=== PATIENT | female | born 1980 | race Caucasian/White ===

== ENCOUNTER 2020-10-07 00:10 | Inpatient (IN) | payer BC, OTHER ==
[~2020-10-07] VITALS: Ht 172.7 cm; Wt 69.0 kg
[2020-10-07] MEDS ORDERED: ONDANSETRON 2MG/ML, 2ML ONE ×2 (00:42→04:50)
[2020-10-07] MEDS ORDERED: MORPHINE SULFATE 4 MG/ML, 1ML ONE ×2 (00:42→03:43)
[2020-10-07 00:47] LABS: BASOPHILS % (AUTO) 1 % (0-1); EOSINOPHILS % (AUTO) 1 % (1-7); LYMPHOCYTES % (AUTO) 13 % (22-44); MEAN CORPUSCULAR HEMOGLOBIN 33.9 pg (27.0-34.8); MEAN CORPUSCULAR HGB CONC 34.7 g/dL (32.4-35.8); MEAN PLATELET VOLUME 9.1 fL (7.4-10.4); MONOCYTES % (AUTO) 7 % (2-9); NEUTROPHILS % (AUTO) 78 % (42-75); PLATELET COUNT 266 x10^3/uL (130-400); RED BLOOD COUNT 4.45 x10^6/uL (3.82-5.3); RED CELL DISTRIBUTION WIDTH 11.8 % (9.6-15.2)
[2020-10-07 00:48] LABS: MD NO
--- NOTE | 2020-10-07 00:51 | NUR ---
IV STARTED, FLUIDS INFUSING AND PT MEDICATED FOR PAIN PER EMAR, LABS DRAWN WITH IV START. VSS AND WILL CONT TO MONITOR. AWAITING CT SCAN
[2020-10-07] MEDS ORDERED: LEVO100T5 PO (00:53)
[2020-10-07 00:59] LABS: ALANINE AMINOTRANSFERASE 35 U/L (12-78); ALBUMIN 3.9 g/dL (3.4-5.0); ANION GAP 12 mmol/L (5-15); CALCIUM 8.9 mg/dL (8.5-10.1); CHLORIDE 110 mmol/L (98-107); CREATININE 0.73 mg/dL (0.55-1.02)
[2020-10-07] MEDS ORDERED: ONDANSETRON 2MG/ML, 2ML IVPush ONE (01:00)
[2020-10-07] MEDS ORDERED: MORPHINE SULFATE 4 MG/ML, 1ML IVPush PRN ×2 (01:00→04:00)
[2020-10-07 01:04] LABS: ALKALINE PHOSPHATASE 72 U/L (45-117); BILIRUBIN,TOTAL 0.4 mg/dL (0.2-1.0)
--- NOTE | 2020-10-07 01:13 | NUR ---
PT TO CT WITH PRINTED FORMS PROOFREADER AT THIS TIME. PT STATES PAIN IS IMPROVING AFTER MEDS.
[2020-10-07 02:34] LABS: MICROSCOPIC INDICATED
[2020-10-07] MEDS ORDERED: CEFTRIAXONE PMX 1GM/50ML 50 ML ONE (02:47)
[2020-10-07] MEDS ORDERED: CEFTRIAXONE PMX 1GM/50ML 50 ML IV ONE (03:00)
--- NOTE | 2020-10-07 03:00 | NUR ---
Report given to Sam in surgery. HCG urine lab added and Rapid Covid swab walked to lab. pt undressed and ready for surgery.
[2020-10-07] MEDS ORDERED: SODIUM CHLORIDE 0.9% 1,000 ML IV SCH (03:30)
[2020-10-07] MEDS ORDERED: morphine SULFATE 10 MG/ML, 1ML IVPush PRN ×2 (03:30→04:30)
[2020-10-07] MEDS ORDERED: KETOROLAC 30 MG/1 ML IV PRN (03:30)
[2020-10-07] MEDS ORDERED: ACETAMINOPHEN 325 MG TABLET PO PRN ×2 (03:30→04:30)
[2020-10-07] MEDS ORDERED: ONDANSETRON 2MG/ML, 2ML IVPush PRN (03:30)
[2020-10-07] MEDS ORDERED: FENTANYL PF 250 MCG/5ML ONE (03:49)
[2020-10-07] MEDS ORDERED: MIDAZOLAM 1 MG/ML, 2ML ONE (03:49)
--- NOTE | 2020-10-07 03:50 | NUR ---
Dr. Cameron at bedside for surgical consult.
[2020-10-07] MEDS ORDERED: SUGAMMADEX 200 MG/2 ML IVPush ONE (03:54)
[2020-10-07] MEDS ORDERED: KETOROLAC 30 MG/1 ML ONE (03:54)
[2020-10-07] MEDS ORDERED: SCOPOLAMINE 1MG PATCH TD ONE (04:07)
[2020-10-07] MEDS ORDERED: PROPOFOL 50 ML ONE (04:08)
[2020-10-07 04:12] LABS: HCG UR SG 1.023 (1.003-1.030)
[2020-10-07] MEDS ORDERED: MEPERIDINE/PF 25MG/0.5ML IVPush PRN (04:30)
[2020-10-07] MEDS ORDERED: LABETALOL 5MG/ML, 20ML IV PRN (04:30)
[2020-10-07] MEDS ORDERED: HALOPERIDOL 5 MG/ML IV PRN (04:30)
[2020-10-07] MEDS ORDERED: hydrALAzine 20 MG/ML, 1ML IV PRN (04:30)
[2020-10-07] MEDS ORDERED: PROMETHAZINE 25 MG/ML, 1ML IVPush PRN (04:30)
[2020-10-07] MEDS ORDERED: HYDROmorphone 1 MG/ML, 1ML INJ IVPush PRN (04:30)
[2020-10-07] MEDS ORDERED: OXYcodone 5 MG/5 ML ORAL.SOL UDC PO PRN (04:30)
[2020-10-07] MEDS ORDERED: DEXAMETHASONE 4 MG/ML, 1ML ONE (04:50)
[2020-10-07] MEDS ORDERED: PROPOFOL 10 MG/ML, 20ML ONE (04:50)
[2020-10-07] MEDS ORDERED: ROCURONIUM 10MG/ML,5ML ONE (04:50)
[2020-10-07] MEDS ORDERED: OXYBUTYNIN CHLORIDE 5 MG TABLET PO SCH (05:00)
[2020-10-07] MEDS ORDERED: OMNIPAQUE 350 MG/ML, 50 ML BOTTLE IV ONE (05:03)
[2020-10-07] MEDS ORDERED: OXYcodone 5 MG/5 ML ORAL.SOL UDC ONE (05:15)
[2020-10-07] MEDS ORDERED: ACETAMINOPHEN 650 MG/20.3 ML UDC ONE (05:15)
[2020-10-07] MEDS ORDERED: FENTANYL PF 100 MCG/2ML ONE (05:15)
[2020-10-07] MEDS: FENTANYL PF 100 MCG/2ML IV PRN ×2 (05:25→05:33)
[2020-10-07] MEDS ORDERED: OMNIPAQUE 350 MG/ML, 50 ML BOTTLE ONE (05:58)
[2020-10-07 05:59] VITALS: BP 96/47
[2020-10-07 08:00] VITALS: BP 98/67
[2020-10-07] MEDS ORDERED: LEVOTHYROXINE 100 MCG TABLET ONE (08:17)
[2020-10-07] MEDS ORDERED: OXYB10TA26 PO (08:49)
[2020-10-07] MEDS ORDERED: TAMS-11 PO (08:49)
[2020-10-07] MEDS ORDERED: OXYC10TA72 PO (08:51)
[2020-10-07] MEDS ORDERED: OXYcodone/APAP 5/325MG TABLET PO PRN (09:30)
[2020-10-07] MEDS ORDERED: OXYB-39 PO (11:33)
[2020-10-07] MEDS ORDERED: DOXY100T PO (12:15)
[2020-10-07 13:01] VITALS: BP 99/49
[2020-10-07] MEDS ORDERED: OXYBUTYNIN CHLORIDE 5 MG TABLET PO PRN (17:00)
[2020-10-08] MEDS ORDERED: CEFTRIAXONE PMX 1GM/50ML 50 ML IV SCH (03:00)
[2020-10-08] MEDS ORDERED: LEVOTHYROXINE 100 MCG TABLET PO SCH (06:00)
== END 2020-10-07 15:14 | disposition home or self-care (01) | DRG 660 ==
LOC: ED 03:24 → EDIP 03:44 → 4NE 05:54
PROVIDERS: ADMIT Family Medicine; ATTEND Internal Medicine
PROC: BT1F1ZZ Fluoroscopy of Left Kidney, Ureter and Bladder using Low Osmolar Contrast (ICD-10-PCS; 2020-10-07)
PROC: 0T778DZ Dilation of Left Ureter with Intraluminal Device, Via Natural or Artificial Opening Endoscopic (ICD-10-PCS; principal; 2020-10-07 04:00)
DX: N13.6 Pyonephrosis (principal); N20.1 Calculus of ureter; E03.9 Hypothyroidism, unspecified; N83.202 Unspecified ovarian cyst, left side; E87.8 Other disorders of electrolyte and fluid balance, not elsewhere classified; Z20.822 Contact with and (suspected) exposure to COVID-19; Z87.891 Personal history of nicotine dependence; Z72.89 Other problems related to lifestyle; Z98.82 Breast implant status; Z90.49 Acquired absence of other specified parts of digestive tract; Z88.2 Allergy status to sulfonamides; Z91.041 Radiographic dye allergy status
CPT/HCPCS: 36415; 74176; 74420; 80053; 81001; 81025; 84703; 85025; 87086; 87635; 96361; 96374; 96375; 99285; G0378; J0696; J1100; J1885; J2250; J2405; J2704; J3010; Q9967; J2270

== ENCOUNTER → 2020-10-23 | Outpatient (CLI) | payer OTHER ==
[~2020-10-23] MED LIST: ACYC-113 PO; AMLO-211 PO; ASPI-1026 PO; AZAT50TA9 PO; DOXY100T PO; DOXY20TA5 PO; GLUC1CAP80 PO; LEVO100T5 PO; LEVO25TA4 PO; LIOT25TA12 PO; LOSA1TAB22 PO; MEDR5POW PO; OMEP-110 PO; OXYB-39 PO; OXYB10TA26 PO; OXYC10TA72 PO; PSYL0.527 PO; ROSU5TAB PO; TAMS-11 PO
== END | disposition home or self-care (01) ==
LOC: RAD 15:50
PROVIDERS: ATTEND Family Medicine
DX: R31.21 Asymptomatic microscopic hematuria (principal); R35.0 Frequency of micturition
CPT/HCPCS: 76770

== ENCOUNTER → 2021-04-10 | Outpatient (CLI) | payer OTHER ==
[~2021-04-10] MED LIST changes: -ACYC-113 PO; +ACYC200C13 PO
[2021-04-10 09:11] LABS: BASOPHILS % (AUTO) 1 % (0-1); EOSINOPHILS % (AUTO) 2 % (1-7); LYMPHOCYTES % (AUTO) 22 % (22-44); MEAN CORPUSCULAR HEMOGLOBIN 34.9 pg (27.0-34.8); MEAN CORPUSCULAR HGB CONC 35.1 g/dL (32.4-35.8); MEAN PLATELET VOLUME 9.8 fL (7.4-10.4); MONOCYTES % (AUTO) 11 % (2-9); NEUTROPHILS % (AUTO) 65 % (42-75); PLATELET COUNT 208 x10^3/uL (130-400); RED BLOOD COUNT 4.49 x10^6/uL (3.82-5.3); RED CELL DISTRIBUTION WIDTH 12.2 % (9.6-15.2)
[2021-04-10 09:21] LABS: ALANINE AMINOTRANSFERASE 23 U/L (12-78); ANION GAP 5 mmol/L (5-15); CHLORIDE 111 mmol/L (98-107)
[2021-04-10 09:29] LABS: ALKALINE PHOSPHATASE 70 U/L (45-117); BILIRUBIN,TOTAL 0.7 mg/dL (0.2-1.0); CREATININE 0.58 mg/dL (0.55-1.02); TOTAL PROTEIN 7.2 g/dL (6.4-8.2)
[2021-04-10 09:53] LABS: FREE T4 (FREE THYROXINE) 0.84 ng/dL (0.76-1.46)
== END | disposition home or self-care (01) ==
LOC: LAB 08:31
PROVIDERS: ATTEND Family Medicine
DX: S99.922A Unspecified injury of left foot, initial encounter (principal); N76.0 Acute vaginitis; R53.83 Other fatigue; R30.0 Dysuria; X58.XXXA Exposure to other specified factors, initial encounter; Y92.89 Other specified places as the place of occurrence of the external cause; Y93.89 Activity, other specified; Y99.8 Other external cause status
CPT/HCPCS: 36415; 80053; 84439; 84443; 85025; 86618

== ENCOUNTER → 2021-04-11 | Outpatient (CLI) | payer OTHER ==
[2021-04-11 16:04] LABS: T4 (THYROXINE) 7.5 mcg/dL (4.8-13.9)
[2021-04-11 16:16] LABS: LDL/HDL RATIO 0.8 (0.5-3.0)
== END | disposition home or self-care (01) ==
LOC: LAB 15:08
PROVIDERS: ATTEND Family Medicine
DX: R53.83 Other fatigue (principal); R30.0 Dysuria; E03.8 Other specified hypothyroidism
CPT/HCPCS: 36415; 80061; 82397; 82670; 83001; 83002; 84403; 84436; 84479; 84481

== ENCOUNTER 2021-05-13 06:41 | Outpatient (CLI) | payer OTHER | END 2021-05-13 23:59 | disposition home or self-care (01) | LOC: CFH 06:41 | PROVIDERS: ATTEND Family Medicine | DX: N39.0 Urinary tract infection, site not specified (principal) | CPT/HCPCS: 76770 ==